=== PATIENT | male | born 1970 | race African-American/Black ===

== ENCOUNTER 2016-08-13 17:53 | Emergency (ER) | payer MEDICAID, OTHER ==
[~2016-08-13] VITALS: Ht 172.7 cm; Wt 113.6 kg
[~2016-08-13 17:53] MED LIST: BENZ1TAB10 PO; BUPR-93 PO; QUET200T PO
[2016-08-13 18:40] LABS: BASOPHILS # (AUTO) 0.04 K/uL (0.00-0.20); BASOPHILS % (AUTO) 0.3 % (0.0-2.0); EOSINOPHILS # (AUTO) 0.65 K/uL (0.00-0.70); EOSINOPHILS % (AUTO) 4.69 % (1.0-6.0); HEMATOCRIT 41.8 % (41-53); HEMOGLOBIN 13.7 g/dL (13.5-17.5); LYMPHOCYTES # (AUTO) 2.3 K/uL (1.0-4.8); LYMPHOCYTES % (AUTO) 16.6 % (22.0-44.0); MEAN CORPUSCULAR HEMOGLOBIN 29.7 pg (26.0-34.0); MEAN CORPUSCULAR HGB CONC 32.6 G/dL (31.0-37.0); MEAN CORPUSCULAR VOLUME 91 fL (80-100); MONOCYTES # (AUTO) 0.9 K/uL (0.1-1.0); MONOCYTES % (AUTO) 6.3 % (2.0-9.0); NEUTROPHILS % (AUTO) 72.2 % (40.0-70.0); PLATELET COUNT (AUTO) 249 K/uL (150-450); RED CELL DISTRIBUTION WIDTH 14.6 % (11.5-14.5); WHITE BLOOD COUNT (AUTO) 13.8 K/uL (4.5-11.0)
[2016-08-13 18:47] LABS: ANION GAP 10 mmol/L (8-16); CALCIUM, TOTAL 8.4 mg/dL (8.8-10.5); CARBON DIOXIDE 28 mmol/L (22-29); CHLORIDE 99 mmol/L (98-107); CREATININE 1.16 mg/dL (0.60-1.30); GLOMERULAR FILTR. RATE CALC > 60 mL/min (>60); SODIUM SERUM 137 mmol/L (136-145); UREA NITROGEN, BLOOD 11 mg/dL (7-18)
[2016-08-13 18:53] LABS: ALANINE AMINOTRANSFERASE 71 U/L (12-78); ALBUMIN 3.8 g/dL (3.4-5.0); ASPARTATE AMINOTRANSFERASE 24 U/L (15-37); BILIRUBIN,TOTAL 0.3 mg/dL (0.1-1.0); TOTAL PROTEIN, SERUM 7.7 g/dL (6.4-8.2)
[2016-08-13 19:06] LABS: RBC MORPHOLOGY COMMENT NORMAL RBC MORPH
[2016-08-13] MEDS ORDERED: RisperiDONE CONC 2 MG/2 ML SOLUTION ORAL.SYG PO ONE (20:15)
[2016-08-13] MEDS ORDERED: BuPROPion HCL 75 MG TABLET PO ONE (20:15)
[2016-08-13] MEDS ORDERED: QUEtiapine FUMARATE 100 MG TABLET PO ONE (20:15)
[2016-08-13 20:22] VITALS: BP 133/82
== END 2016-08-13 20:26 | disposition home or self-care (01) ==
LOC: EMS 17:56
DX: F20.9 Schizophrenia, unspecified (principal); F32.9 Major depressive disorder, single episode, unspecified; J45.909 Unspecified asthma, uncomplicated; I10 Essential (primary) hypertension; F17.210 Nicotine dependence, cigarettes, uncomplicated
CPT/HCPCS: 36415; 80053; 80307; 85025; 99284; 99406; G0480

== ENCOUNTER 2016-08-14 08:27 | Inpatient (IN) | payer MEDICAID, OTHER ==
[~2016-08-14] VITALS: Ht 172.7 cm; Wt 116.5 kg
[2016-08-14 08:53] LABS: BASOPHILS # (AUTO) 0.03 K/uL (0.00-0.20); BASOPHILS % (AUTO) 0.3 % (0.0-2.0); EOSINOPHILS # (AUTO) 0.81 K/uL (0.00-0.70); EOSINOPHILS % (AUTO) 8.71 % (1.0-6.0); HEMATOCRIT 43.9 % (41-53); HEMOGLOBIN 14.3 g/dL (13.5-17.5); LYMPHOCYTES # (AUTO) 2.6 K/uL (1.0-4.8); LYMPHOCYTES % (AUTO) 27.4 % (22.0-44.0); MEAN CORPUSCULAR HEMOGLOBIN 29.4 pg (26.0-34.0); MEAN CORPUSCULAR HGB CONC 32.5 G/dL (31.0-37.0); MEAN CORPUSCULAR VOLUME 90 fL (80-100); MONOCYTES # (AUTO) 0.9 K/uL (0.1-1.0); MONOCYTES % (AUTO) 9.7 % (2.0-9.0); NEUTROPHILS % (AUTO) 53.9 % (40.0-70.0); PLATELET COUNT (AUTO) 235 K/uL (150-450); RED BLOOD CELL COUNT(AUTO) 4.85 MIL/uL (4.50-5.90); RED CELL DISTRIBUTION WIDTH 14.9 % (11.5-14.5); WHITE BLOOD COUNT (AUTO) 9.3 K/uL (4.5-11.0)
[2016-08-14 09:06] LABS: ANION GAP 8 mmol/L (8-16); CALCIUM, TOTAL 9.1 mg/dL (8.8-10.5); CARBON DIOXIDE 31 mmol/L (22-29); CHLORIDE 102 mmol/L (98-107); CREATININE 1.19 mg/dL (0.60-1.30); GLOMERULAR FILTR. RATE CALC > 60 mL/min (>60); POTASSIUM 4.3 mmol/L (3.5-5.1); SODIUM SERUM 141 mmol/L (136-145); UREA NITROGEN, BLOOD 11 mg/dL (7-18)
[2016-08-14 09:13] LABS: ALANINE AMINOTRANSFERASE 75 U/L (12-78); ALBUMIN 4.3 g/dL (3.4-5.0); ASPARTATE AMINOTRANSFERASE 24 U/L (15-37); BILIRUBIN,TOTAL 0.5 mg/dL (0.1-1.0); TOTAL PROTEIN, SERUM 8.4 g/dL (6.4-8.2)
[2016-08-14] MEDS ORDERED: QUEtiapine FUMARATE 100 MG TABLET PO PRN (09:30)
[2016-08-14] MEDS ORDERED: TUBERCULIN, PURIFIED PROTEIN DERIVATIVE 5 TU/0.1 ML SYG ID ONE (10:15)
[2016-08-14] MEDS ORDERED: PROMETHAZINE HCL 25 MG TABLET PO PRN (10:15)
[2016-08-14] MEDS ORDERED: HydrOXYzine PAMOATE 50 MG CAPSULE PO PRN (10:15)
[2016-08-14] MEDS ORDERED: MAGNESIUM HYDROXIDE SUSPENSION 30 ML UDCUP PO PRN (10:15)
[2016-08-14] MEDS ORDERED: GuaiFENesin/D-METHORPHAN [SUGAR-FREE] 200-20MG/10 ML SYRUP UDCUP PO PRN (10:15)
[2016-08-14] MEDS ORDERED: LOPERAMIDE HCL 2 MG CAPSULE PO PRN (10:15)
[2016-08-14] MEDS ORDERED: MAG HYDROX/AL HYDROX/SIMETH ES 30 ML SUSPENSION UDCUP PO PRN (10:15)
[2016-08-14] MEDS: THIAMINE HCL 100 MG TABLET PO SCH (19:30)
[2016-08-14 20:07] VITALS: BP 136/82
[2016-08-14] MEDS ORDERED: QUEtiapine FUMARATE 200 MG TABLET PO SCH (21:00)
[2016-08-14 21:54] VITALS: BP 136/82
[2016-08-15 08:00] VITALS: BP 147/113
[2016-08-15 08:13] LABS: CHOL/HDL RATIO 6.4 (4.2-7.3)
[2016-08-15] MEDS: BuPROPion HCL XL 150 MG ER TABLET PO SCH (10:50)
[2016-08-15] MEDS: MULTIVITAMINS WITH MINERALS, THERAPEUTIC TABLET PO SCH (10:50)
[2016-08-15] MEDS: FOLIC ACID 1 MG TABLET PO SCH (10:50)
[2016-08-15] MEDS: NALTREXONE HCL 50 MG TABLET PO SCH (10:50)
[2016-08-15] MEDS: THIAMINE HCL 100 MG TABLET PO SCH ×2 (10:51→16:13)
[2016-08-15 14:10] VITALS: BP 139/67
[2016-08-15] MEDS: LORazepam 2 MG TABLET PO PRN (14:45)
[2016-08-15] MEDS ORDERED: OLANZapine 5 MG RAPDIS TABLET PO PRN (15:15)
[2016-08-15] MEDS: TRIHEXYPHENIDYL HCL 2 MG TABLET PO SCH (17:27)
[2016-08-15 20:59] VITALS: BP 134/89
[2016-08-15] MEDS ORDERED: OLANZapine 5 MG RAPDIS TABLET PO SCH (21:00)
[2016-08-16 08:04] VITALS: BP 108/66
[2016-08-16] MEDS: TRIHEXYPHENIDYL HCL 2 MG TABLET PO SCH ×3 (10:31→16:11)
[2016-08-16] MEDS: NALTREXONE HCL 50 MG TABLET PO SCH (10:31)
[2016-08-16] MEDS: THIAMINE HCL 100 MG TABLET PO SCH ×2 (10:31→16:11)
[2016-08-16] MEDS: BuPROPion HCL XL 150 MG ER TABLET PO SCH (10:32)
[2016-08-16] MEDS: FOLIC ACID 1 MG TABLET PO SCH (10:32)
[2016-08-16] MEDS: MULTIVITAMINS WITH MINERALS, THERAPEUTIC TABLET PO SCH (10:32)
[2016-08-16] MEDS: ACETAMINOPHEN 325 MG TABLET PO PRN (16:14)
[2016-08-16 16:15] VITALS: BP 120/91
[2016-08-16] MEDS ORDERED: OLANZapine 10 MG RAPDIS TABLET PO SCH (21:00)
[2016-08-16] MEDS: ZOLPIDEM TARTRATE 10 MG TABLET PO PRN (22:39)
[2016-08-17 06:47] VITALS: BP 125/89
[2016-08-17 08:04] VITALS: BP 106/63
[2016-08-17] MEDS: FOLIC ACID 1 MG TABLET PO SCH (09:52)
[2016-08-17] MEDS: BuPROPion HCL XL 150 MG ER TABLET PO SCH (09:52)
[2016-08-17] MEDS: TRIHEXYPHENIDYL HCL 2 MG TABLET PO SCH ×3 (09:52→16:46)
[2016-08-17] MEDS: MULTIVITAMINS WITH MINERALS, THERAPEUTIC TABLET PO SCH (09:53)
[2016-08-17] MEDS: THIAMINE HCL 100 MG TABLET PO SCH ×2 (09:53→16:46)
[2016-08-17] MEDS: NALTREXONE HCL 50 MG TABLET PO SCH (09:53)
[2016-08-17] MEDS: ACETAMINOPHEN 325 MG TABLET PO PRN (12:25)
[2016-08-17] MEDS: LORazepam 2 MG TABLET PO PRN (12:26)
[2016-08-17] MEDS ORDERED: PALIPERIDONE 3 MG ER TABLET PO PRN (13:30)
[2016-08-17] MEDS ORDERED: PALIPERIDONE PALMITATE 234 MG/1.5 ML SYRINGE IM ONE (16:00)
[2016-08-17 18:06] VITALS: BP 120/68
[2016-08-17] MEDS ORDERED: PALIPERIDONE 3 MG ER TABLET PO SCH (21:00)
[2016-08-18 08:57] VITALS: BP 126/78
[2016-08-18 09:25] VITALS: BP 126/78
[2016-08-18] MEDS: THIAMINE HCL 100 MG TABLET PO SCH ×2 (09:28→16:28)
[2016-08-18] MEDS: MULTIVITAMINS WITH MINERALS, THERAPEUTIC TABLET PO SCH (09:28)
[2016-08-18] MEDS: ACETAMINOPHEN 325 MG TABLET PO PRN ×2 (09:28→17:49)
[2016-08-18] MEDS: LORazepam 2 MG TABLET PO PRN (09:28)
[2016-08-18] MEDS: BuPROPion HCL XL 150 MG ER TABLET PO SCH (09:28)
[2016-08-18] MEDS: NALTREXONE HCL 50 MG TABLET PO SCH (09:28)
[2016-08-18] MEDS: FOLIC ACID 1 MG TABLET PO SCH (09:28)
[2016-08-18] MEDS: TRIHEXYPHENIDYL HCL 2 MG TABLET PO SCH ×3 (09:29→16:28)
[2016-08-18] MEDS: NICOTINE 21 MG/24 HOUR PATCH TD SCH (16:30)
[2016-08-18] MEDS ORDERED: PALIPERIDONE 3 MG ER TABLET PO PRN (17:00)
[2016-08-18] MEDS: ZOLPIDEM TARTRATE 10 MG TABLET PO PRN (20:54)
[2016-08-19] MEDS: ACETAMINOPHEN 325 MG TABLET PO PRN ×2 (04:13→12:53)
[2016-08-19 04:18] VITALS: BP 123/72
[2016-08-19] MEDS: LORazepam 2 MG TABLET PO PRN (05:21)
[2016-08-19 08:19] VITALS: BP 140/88
[2016-08-19] MEDS ORDERED: NICOTINE 21 MG/24 HOUR PATCH TD SCH (09:00)
[2016-08-19] MEDS: NALTREXONE HCL 50 MG TABLET PO SCH (09:43)
[2016-08-19] MEDS: BuPROPion HCL XL 150 MG ER TABLET PO SCH (09:43)
[2016-08-19] MEDS: THIAMINE HCL 100 MG TABLET PO SCH ×2 (09:43→16:04)
[2016-08-19] MEDS: TRIHEXYPHENIDYL HCL 2 MG TABLET PO SCH ×3 (09:43→16:04)
[2016-08-19] MEDS: FOLIC ACID 1 MG TABLET PO SCH (09:43)
[2016-08-19] MEDS: MULTIVITAMINS WITH MINERALS, THERAPEUTIC TABLET PO SCH (09:43)
[2016-08-19] MEDS: NICOTINE 21 MG/24 HOUR PATCH TD SCH (09:46)
[2016-08-19 18:47] VITALS: BP 132/91
[2016-08-20 08:00] VITALS: BP 105/66
[2016-08-20] MEDS: MULTIVITAMINS WITH MINERALS, THERAPEUTIC TABLET PO SCH (10:11)
[2016-08-20] MEDS: THIAMINE HCL 100 MG TABLET PO SCH ×2 (10:11→16:44)
[2016-08-20] MEDS: NALTREXONE HCL 50 MG TABLET PO SCH (10:11)
[2016-08-20] MEDS: FOLIC ACID 1 MG TABLET PO SCH (10:11)
[2016-08-20] MEDS: TRIHEXYPHENIDYL HCL 2 MG TABLET PO SCH ×3 (10:11→16:44)
[2016-08-20] MEDS: BuPROPion HCL XL 150 MG ER TABLET PO SCH (10:11)
[2016-08-20] MEDS: NICOTINE 21 MG/24 HOUR PATCH TD SCH (10:15)
[2016-08-20] MEDS: LORazepam 2 MG TABLET PO PRN (13:38)
[2016-08-20] MEDS: ACETAMINOPHEN 325 MG TABLET PO PRN (14:56)
[2016-08-20 19:44] VITALS: BP 132/78
[2016-08-21 09:40] VITALS: BP 122/69
[2016-08-21] MEDS: FOLIC ACID 1 MG TABLET PO SCH (09:41)
[2016-08-21] MEDS: BuPROPion HCL XL 150 MG ER TABLET PO SCH (09:41)
[2016-08-21] MEDS: TRIHEXYPHENIDYL HCL 2 MG TABLET PO SCH ×3 (09:41→16:29)
[2016-08-21] MEDS: THIAMINE HCL 100 MG TABLET PO SCH ×2 (09:41→16:29)
[2016-08-21] MEDS: NALTREXONE HCL 50 MG TABLET PO SCH (09:41)
[2016-08-21] MEDS: MULTIVITAMINS WITH MINERALS, THERAPEUTIC TABLET PO SCH (09:41)
[2016-08-21] MEDS: LORazepam 2 MG TABLET PO PRN ×2 (09:42→16:30)
[2016-08-21] MEDS: ACETAMINOPHEN 325 MG TABLET PO PRN (09:43)
[2016-08-21] MEDS: NICOTINE 21 MG/24 HOUR PATCH TD SCH (09:44)
[2016-08-21 16:00] VITALS: BP 123/66
[2016-08-21] MEDS ORDERED: PALI234D IM (16:42)
[2016-08-21] MEDS ORDERED: TRIH2TAB3 PO (16:42)
[2016-08-21] MEDS ORDERED: BUPR-47 PO (16:42)
[2016-08-21] MEDS ORDERED: NALT50 PO (16:42)
[2016-08-21] MEDS: ZOLPIDEM TARTRATE 10 MG TABLET PO PRN (21:23)
[2016-08-22 08:08] VITALS: BP 113/77
[2016-08-22] MEDS: NALTREXONE HCL 50 MG TABLET PO SCH (09:37)
[2016-08-22] MEDS: BuPROPion HCL XL 150 MG ER TABLET PO SCH (09:37)
[2016-08-22] MEDS: TRIHEXYPHENIDYL HCL 2 MG TABLET PO SCH ×2 (09:37→12:33)
[2016-08-22] MEDS: MULTIVITAMINS WITH MINERALS, THERAPEUTIC TABLET PO SCH (09:37)
[2016-08-22] MEDS: THIAMINE HCL 100 MG TABLET PO SCH (09:37)
[2016-08-22] MEDS: FOLIC ACID 1 MG TABLET PO SCH (09:37)
[2016-08-22] MEDS: ACETAMINOPHEN 325 MG TABLET PO PRN (09:38)
[2016-08-22] MEDS: NICOTINE 21 MG/24 HOUR PATCH TD SCH (09:38)
[2016-08-22] MEDS: LORazepam 2 MG TABLET PO PRN (09:38)
[2016-09-14] MEDS ORDERED: PALIPERIDONE PALMITATE 234 MG/1.5 ML SYRINGE IM SCH (09:00)
== END 2016-08-22 13:00 | disposition home or self-care (01) | DRG 750 ==
LOC: EEVIPCON 08:29 → EMS 08:29 → AHU 10:47 → 3EI 17:58
PROVIDERS: ADMIT Psychiatry & Neurology Psychiatry; ATTEND Psychiatry & Neurology Psychiatry
DX: F25.0 Schizoaffective disorder, bipolar type (principal); G93.41 Metabolic encephalopathy; J44.9 Chronic obstructive pulmonary disease, unspecified; Z91.14 Patient's other noncompliance with medication regimen; F19.20 Other psychoactive substance dependence, uncomplicated; F17.200 Nicotine dependence, unspecified, uncomplicated; E66.9 Obesity, unspecified; K21.9 Gastro-esophageal reflux disease without esophagitis; G47.00 Insomnia, unspecified; K59.00 Constipation, unspecified; Z68.39 Body mass index [BMI] 39.0-39.9, adult
CPT/HCPCS: 99285; G0480

== ENCOUNTER 2016-08-22 17:19 | Emergency (ER) | payer MEDICAID, OTHER ==
[~2016-08-22] VITALS: Ht 172.7 cm; Wt 113.6 kg
[~2016-08-22 17:19] MED LIST changes: -BENZ1TAB10 PO; +BUPR-47 PO; -BUPR-93 PO; +NALT50 PO; +PALI234D IM; -QUET200T PO; +TRIH2TAB3 PO
[2016-08-22 20:34] VITALS: BP 136/92
[2016-08-22] MEDS ORDERED: LORazepam 2 MG/ML VIAL IM ONE (21:00)
[2016-08-22] MEDS ORDERED: HALOPERIDOL LACTATE 5 MG/ML VIAL IM ONE (21:00)
== END 2016-08-22 21:11 | disposition home or self-care (01) ==
LOC: EMS 17:20
DX: F41.9 Anxiety disorder, unspecified (principal); F25.9 Schizoaffective disorder, unspecified; J45.909 Unspecified asthma, uncomplicated; I10 Essential (primary) hypertension; F17.210 Nicotine dependence, cigarettes, uncomplicated
CPT/HCPCS: 96372; 99284; 99406; J1630; J2060

== ENCOUNTER 2017-02-11 13:22 | Emergency (ER) | payer OTHER ==
[~2017-02-11] VITALS: Ht 172.7 cm; Wt 113.6 kg
[~2017-02-11 13:22] MED LIST changes: -NALT50 PO; +NALT50TA6 PO
[2017-02-11 15:20] VITALS: BP 141/85
== END 2017-02-11 15:49 | disposition home or self-care (01) ==
LOC: EMS 13:24
DX: Z76.0 Encounter for issue of repeat prescription (principal); F20.9 Schizophrenia, unspecified; F32.9 Major depressive disorder, single episode, unspecified; I10 Essential (primary) hypertension; J45.909 Unspecified asthma, uncomplicated; F17.210 Nicotine dependence, cigarettes, uncomplicated
CPT/HCPCS: 99283

== ENCOUNTER 2017-02-25 00:48 | Inpatient (IN) | payer MEDICAID, OTHER ==
[~2017-02-25] VITALS: Ht 172.7 cm; Wt 120.7 kg
[~2017-02-25 00:48] MED LIST changes: -TRIH2TAB3 PO
[2017-02-25] MEDS ORDERED: BENZ1TAB10 PO (01:01)
[2017-02-25 01:17] LABS: BASOPHILS # (AUTO) 0.04 K/uL (0.00-0.20); BASOPHILS % (AUTO) 0.3 % (0.0-2.0); EOSINOPHILS # (AUTO) 0.38 K/uL (0.00-0.70); EOSINOPHILS % (AUTO) 3.66 % (1.0-6.0); HEMATOCRIT 42.1 % (41-53); HEMOGLOBIN 14.1 g/dL (13.5-17.5); LYMPHOCYTES # (AUTO) 2.4 K/uL (1.0-4.8); LYMPHOCYTES % (AUTO) 23.1 % (22.0-44.0); MEAN CORPUSCULAR HEMOGLOBIN 30.1 pg (26.0-34.0); MEAN CORPUSCULAR HGB CONC 33.6 G/dL (31.0-37.0); MEAN CORPUSCULAR VOLUME 90 fL (80-100); MONOCYTES # (AUTO) 1.1 K/uL (0.1-1.0); MONOCYTES % (AUTO) 10.4 % (2.0-9.0); NEUTROPHILS # (AUTO) 6.5 K/uL (1.8-7.7); NEUTROPHILS % (AUTO) 62.5 % (40.0-70.0); PLATELET COUNT (AUTO) 230 K/uL (150-450); WHITE BLOOD COUNT (AUTO) 10.3 K/uL (4.5-11.0)
[2017-02-25 01:28] LABS: ANION GAP 11 mmol/L (8-16); CALCIUM, TOTAL 9.1 mg/dL (8.8-10.5); CARBON DIOXIDE 27 mmol/L (22-29); CHLORIDE 103 mmol/L (98-107); CREATININE 1.24 mg/dL (0.60-1.30); GLOMERULAR FILTR. RATE CALC > 60 mL/min (>60); POTASSIUM 3.5 mmol/L (3.5-5.1); SODIUM SERUM 141 mmol/L (136-145); UREA NITROGEN, BLOOD 17 mg/dL (7-18)
[2017-02-25 01:33] LABS: ALANINE AMINOTRANSFERASE 48 U/L (12-78); ASPARTATE AMINOTRANSFERASE 28 U/L (15-37); BILIRUBIN,TOTAL 0.3 mg/dL (0.1-1.0)
[2017-02-25] MEDS ORDERED: HALOPERIDOL 5 MG TABLET PO ONE (02:15)
[2017-02-25] MEDS ORDERED: LORazepam 2 MG TABLET PO ONE (02:15)
[2017-02-25] MEDS ORDERED: DiphenhydrAMINE HCL 50 MG CAPSULE PO ONE (02:15)
[2017-02-25] MEDS ORDERED: HALOPERIDOL 5 MG TABLET PO PRN (03:15)
[2017-02-25 08:54] VITALS: BP 100/77
[2017-02-25] MEDS: NICOTINE 21 MG/24 HOUR PATCH TD SCH (10:00)
[2017-02-25] MEDS ORDERED: -PHARMACY VACCINE NOTE- MISC ONE ×2 (10:45)
[2017-02-25] MEDS ORDERED: INFLUENZA VIRUS VACCINE QVS 2017-18 (3YR+)/PF 60 MCG/0.5 ML SYRINGE IM ONE (10:45)
[2017-02-25] MEDS ORDERED: CloNIDine HCL 0.1 MG TABLET PO PRN (13:00)
[2017-02-25] MEDS ORDERED: BACITRACIN 28.4 GM OINTMENT TP PRN (13:00)
[2017-02-25] MEDS ORDERED: ACETAMINOPHEN 325 MG TABLET PO PRN (13:00)
[2017-02-25] MEDS ORDERED: ONDANSETRON HCL 4 MG TABLET PO PRN (13:00)
[2017-02-25] MEDS ORDERED: MAG HYDROX/AL HYDROX/SIMETH ES 30 ML SUSPENSION UDCUP PO PRN (13:00)
[2017-02-25] MEDS ORDERED: ALBUTEROL SULFATE HFA 90 MCG/PUFF 8 GM INHALER IH PRN (13:00)
[2017-02-25] MEDS ORDERED: PETROLATUM,WHITE 71 GM JELLY TP PRN (13:00)
[2017-02-25] MEDS ORDERED: LOPERAMIDE HCL 2 MG CAPSULE PO PRN (13:00)
[2017-02-25] MEDS ORDERED: MAGNESIUM HYDROXIDE SUSPENSION 30 ML UDCUP PO PRN (13:00)
[2017-02-25] MEDS ORDERED: BENZOCAINE/MENTHOL LOZENGE [8 LOZENGES/PACKET] MM PRN (15:00)
[2017-02-25 20:54] VITALS: BP 107/71
[2017-02-25] MEDS: PALIPERIDONE 3 MG ER TABLET PO SCH (21:41)
[2017-02-25] MEDS: BENZTROPINE MESYLATE 1 MG TABLET PO SCH (21:41)
[2017-02-25] MEDS: LORazepam 2 MG TABLET PO PRN (21:42)
[2017-02-25] MEDS: SIMVASTATIN 10 MG TABLET PO SCH (21:42)
[2017-02-25] MEDS: ZOLPIDEM TARTRATE 10 MG TABLET PO PRN (21:42)
[2017-02-26 06:04] LABS: CHOL/HDL RATIO 4.9 (4.2-7.3)
[2017-02-26 08:20] VITALS: BP 105/69
[2017-02-26] MEDS: PALIPERIDONE 3 MG ER TABLET PO SCH ×2 (14:50→22:35)
[2017-02-26] MEDS: NICOTINE 21 MG/24 HOUR PATCH TD SCH (14:50)
[2017-02-26] MEDS: BENZTROPINE MESYLATE 1 MG TABLET PO SCH ×2 (14:50→22:35)
[2017-02-26 20:50] VITALS: BP 135/85
[2017-02-26] MEDS: SIMVASTATIN 10 MG TABLET PO SCH (22:36)
[2017-02-27 08:58] VITALS: BP 127/60
[2017-02-27] MEDS: PALIPERIDONE 3 MG ER TABLET PO SCH ×2 (10:19→20:47)
[2017-02-27] MEDS: BENZTROPINE MESYLATE 1 MG TABLET PO SCH ×2 (10:19→20:47)
[2017-02-27] MEDS: NICOTINE 21 MG/24 HOUR PATCH TD SCH (10:20)
[2017-02-27 16:17] VITALS: BP 116/81
[2017-02-27] MEDS: SIMVASTATIN 10 MG TABLET PO SCH (20:47)
[2017-02-28 08:43] VITALS: BP 108/68
[2017-02-28] MEDS: BENZTROPINE MESYLATE 1 MG TABLET PO SCH ×2 (09:40→20:09)
[2017-02-28] MEDS: PALIPERIDONE 3 MG ER TABLET PO SCH ×2 (09:40→20:09)
[2017-02-28] MEDS: NICOTINE 21 MG/24 HOUR PATCH TD SCH (09:41)
[2017-02-28] MEDS: VENLAFAXINE HCL 75 MG ER CAPSULE PO SCH (12:03)
[2017-02-28] MEDS: LORazepam 2 MG TABLET PO PRN (12:17)
[2017-02-28] MEDS ORDERED: PALIPERIDONE PALMITATE 234 MG/1.5 ML SYRINGE IM SCH (15:30)
[2017-02-28 19:02] VITALS: BP 105/78
[2017-02-28] MEDS: SIMVASTATIN 10 MG TABLET PO SCH (20:09)
[2017-03-01 08:30] VITALS: BP 111/63
[2017-03-01] MEDS: VENLAFAXINE HCL 75 MG ER CAPSULE PO SCH (08:53)
[2017-03-01] MEDS: PALIPERIDONE 3 MG ER TABLET PO SCH (08:53)
[2017-03-01] MEDS: BENZTROPINE MESYLATE 1 MG TABLET PO SCH ×2 (08:53→20:11)
[2017-03-01] MEDS: NICOTINE 21 MG/24 HOUR PATCH TD SCH (08:53)
[2017-03-01] MEDS: LORazepam 2 MG TABLET PO PRN (08:55)
[2017-03-01 18:32] VITALS: BP 119/81
[2017-03-01] MEDS: SIMVASTATIN 10 MG TABLET PO SCH (20:11)
[2017-03-01] MEDS: ZOLPIDEM TARTRATE 10 MG TABLET PO PRN (20:12)
[2017-03-02 09:56] VITALS: BP 95/55
[2017-03-02] MEDS: NICOTINE 21 MG/24 HOUR PATCH TD SCH (12:25)
[2017-03-02] MEDS: BENZTROPINE MESYLATE 1 MG TABLET PO SCH ×2 (12:25→20:39)
[2017-03-02] MEDS: VENLAFAXINE HCL 75 MG ER CAPSULE PO SCH (12:25)
[2017-03-02] MEDS: IBUPROFEN 600 MG TABLET PO PRN ×2 (14:32→20:33)
[2017-03-02] MEDS: LORazepam 2 MG TABLET PO PRN (14:32)
[2017-03-02 17:17] VITALS: BP 101/62
[2017-03-02 20:30] VITALS: BP 124/71
[2017-03-02] MEDS: SIMVASTATIN 10 MG TABLET PO SCH (20:31)
[2017-03-02] MEDS: ZOLPIDEM TARTRATE 10 MG TABLET PO PRN (20:34)
[2017-03-02 21:30] VITALS: BP 112/68
[2017-03-03 08:38] VITALS: BP 102/68
[2017-03-03] MEDS: NICOTINE 21 MG/24 HOUR PATCH TD SCH (08:45)
[2017-03-03] MEDS: VENLAFAXINE HCL 75 MG ER CAPSULE PO SCH (08:45)
[2017-03-03] MEDS: BENZTROPINE MESYLATE 1 MG TABLET PO SCH ×2 (08:45→21:56)
[2017-03-03] MEDS: LORazepam 2 MG TABLET PO PRN (08:46)
[2017-03-03 19:15] VITALS: BP 107/62
[2017-03-03] MEDS: SIMVASTATIN 10 MG TABLET PO SCH (21:56)
[2017-03-04] MEDS: ZOLPIDEM TARTRATE 10 MG TABLET PO PRN (00:02)
[2017-03-04 00:06] VITALS: BP 106/74
[2017-03-04 08:19] VITALS: BP 104/59
[2017-03-04] MEDS: NICOTINE 21 MG/24 HOUR PATCH TD SCH (09:00)
[2017-03-04] MEDS: BENZTROPINE MESYLATE 1 MG TABLET PO SCH ×2 (10:31→21:15)
[2017-03-04] MEDS: VENLAFAXINE HCL 75 MG ER CAPSULE PO SCH (10:31)
[2017-03-04 16:36] VITALS: BP 125/69
[2017-03-04] MEDS: SIMVASTATIN 10 MG TABLET PO SCH (21:16)
[2017-03-05 00:30] VITALS: BP 127/77
[2017-03-05] MEDS: BENZTROPINE MESYLATE 1 MG TABLET PO SCH (09:44)
[2017-03-05] MEDS: VENLAFAXINE HCL 75 MG ER CAPSULE PO SCH (09:44)
[2017-03-05] MEDS: NICOTINE 21 MG/24 HOUR PATCH TD SCH (09:45)
[2017-03-05] MEDS ORDERED: VENL-67 PO (14:27)
[2017-03-05] MEDS ORDERED: SIMV-259 PO (14:27)
[2017-03-05 15:08] VITALS: BP 128/87
== END 2017-03-05 14:45 | disposition home or self-care (01) | DRG 750 ==
LOC: EMS 00:49 → AHU 08:22 → 3EI 02-26 20:17
DX: F25.1 Schizoaffective disorder, depressive type (principal); R45.851 Suicidal ideations; Z68.41 Body mass index [BMI] 40.0-44.9, adult; I10 Essential (primary) hypertension; R45.850 Homicidal ideations; J44.9 Chronic obstructive pulmonary disease, unspecified; F17.210 Nicotine dependence, cigarettes, uncomplicated; F14.90 Cocaine use, unspecified, uncomplicated; F15.10 Other stimulant abuse, uncomplicated; E66.9 Obesity, unspecified; K59.00 Constipation, unspecified; G47.00 Insomnia, unspecified; F10.10 Alcohol abuse, uncomplicated; E78.5 Hyperlipidemia, unspecified; Z71.6 Tobacco abuse counseling; Z91.5 Personal history of self-harm; Z91.14 Patient's other noncompliance with medication regimen; Z79.899 Other long term (current) drug therapy
CPT/HCPCS: 99285; 99406; G0480; Q0162

== ENCOUNTER 2018-02-04 15:36 | Inpatient (IN) | payer MEDICAID ==
[~2018-02-04 15:36] MED LIST changes: +BENZ1TAB10 PO; -BUPR-47 PO; -NALT50TA6 PO; -PALI234D IM; +SIMV-259 PO; +VENL-67 PO
[2018-02-04] MEDS ORDERED: PALIPERIDONE 1.5 MG ER TABLET PO PRN (16:15)
[2018-02-04] MEDS ORDERED: LOPERAMIDE HCL 2 MG CAPSULE PO PRN ×2 (16:15→20:00)
[2018-02-04] MEDS ORDERED: MAG HYDROX/AL HYDROX/SIMETH ES 30 ML SUSPENSION UDCUP PO PRN ×2 (16:15→20:00)
[2018-02-04] MEDS ORDERED: PROMETHAZINE HCL 25 MG TABLET PO PRN ×2 (16:15)
[2018-02-04] MEDS ORDERED: GuaiFENesin/D-METHORPHAN [SUGAR-FREE] 200-20MG/10 ML SYRUP UDCUP PO PRN (16:15)
[2018-02-04] MEDS ORDERED: TUBERCULIN, PURIFIED PROTEIN DERIVATIVE 5 TU/0.1 ML SYG ID ONE (16:15)
[2018-02-04] MEDS ORDERED: PALIPERIDONE PALMITATE 234 MG/1.5 ML SYRINGE IM ONE (16:15)
[2018-02-04] MEDS ORDERED: ACETAMINOPHEN 325 MG TABLET PO PRN ×2 (16:15→20:00)
[2018-02-04] MEDS ORDERED: MAGNESIUM HYDROXIDE SUSPENSION 30 ML UDCUP PO PRN ×2 (16:15→20:00)
[2018-02-04] MEDS: LORazepam 2 MG TABLET PO PRN (17:36)
[2018-02-04] MEDS: THIAMINE HCL 100 MG TABLET PO SCH (17:37)
[2018-02-04 18:08] VITALS: BP 153/85
[2018-02-04 18:33] VITALS: BP 130/82
[2018-02-04] MEDS ORDERED: BENZOCAINE/MENTHOL LOZENGE MM PRN (20:00)
[2018-02-04] MEDS ORDERED: ALBUTEROL SULFATE HFA 90 MCG/PUFF 8 GM INHALER IH PRN (20:00)
[2018-02-04] MEDS ORDERED: ONDANSETRON HCL 4 MG TABLET PO PRN (20:00)
[2018-02-04] MEDS ORDERED: BACITRACIN 28.4 GM OINTMENT TP PRN (20:00)
[2018-02-04] MEDS ORDERED: PETROLATUM,WHITE 71 GM JELLY TP PRN (20:00)
[2018-02-04] MEDS ORDERED: CloNIDine HCL 0.1 MG TABLET PO PRN (20:00)
[2018-02-04] MEDS ORDERED: IBUPROFEN 600 MG TABLET PO PRN (20:00)
[2018-02-04] MEDS: DIVALPROEX SODIUM 500 MG ER TABLET PO SCH (20:20)
[2018-02-04] MEDS: PALIPERIDONE 3 MG ER TABLET PO SCH (20:20)
[2018-02-05 08:12] VITALS: BP 119/73
[2018-02-05 08:37] LABS: BASOPHILS % (AUTO) 0.5 % (0.0-2.0); EOSINOPHILS % (AUTO) 6.4 % (1.0-6.0); HEMATOCRIT 40.7 % (41-53); HEMOGLOBIN 13.8 g/dL (13.5-17.5); LYMPHOCYTES # (AUTO) 2.4 K/uL (1.0-4.8); LYMPHOCYTES % (AUTO) 30.2 % (22.0-44.0); MEAN CORPUSCULAR HGB CONC 33.9 G/dL (31.0-37.0); MEAN CORPUSCULAR VOLUME 88 fL (80-100); MONOCYTES # (AUTO) 0.9 K/uL (0.1-1.0); NEUTROPHILS # (AUTO) 4.1 K/uL (1.8-7.7); NEUTROPHILS % (AUTO) 51.9 % (40.0-70.0); PLATELET COUNT (AUTO) 219 K/uL (150-450); RED CELL DISTRIBUTION WIDTH 14.3 % (11.5-14.5)
[2018-02-05] MEDS: NALTREXONE HCL 50 MG TABLET PO SCH (08:57)
[2018-02-05] MEDS: MULTIVITAMINS WITH MINERALS, THERAPEUTIC TABLET PO SCH (08:57)
[2018-02-05] MEDS: THIAMINE HCL 100 MG TABLET PO SCH ×2 (08:58→16:02)
[2018-02-05] MEDS: FOLIC ACID 1 MG TABLET PO SCH (08:58)
[2018-02-05] MEDS ORDERED: DOCUSATE SODIUM 100 MG CAPSULE PO SCH (09:00)
[2018-02-05] MEDS ORDERED: OMEPRAZOLE 20 MG CAPSULE PO SCH (09:00)
[2018-02-05 09:02] LABS: HEMOGLOBIN A1C 5.7 % (4.5-6.2)
[2018-02-05 09:12] LABS: ALANINE AMINOTRANSFERASE 65 U/L (12-78); ALBUMIN 3.5 g/dL (3.4-5.0); ALKALINE PHOSPHATASE 57 U/L (46-116); ANION GAP 5 mmol/L (8-16); ASPARTATE AMINOTRANSFERASE 32 U/L (15-37); BILIRUBIN,TOTAL 0.4 mg/dL (0.1-1.0); CALCIUM, TOTAL 8.7 mg/dL (8.8-10.5); CARBON DIOXIDE 28 mmol/L (22-29); CHLORIDE 103 mmol/L (98-107); CHOL/HDL RATIO 5.2 (4.2-7.3); CHOLESTEROL 161 mg/dL (131-200); CREATININE 0.99 mg/dL (0.60-1.30); FREE T4 (FREE THYROXINE) 0.97 ng/dL (0.76-1.46); GLOMERULAR FILTR. RATE CALC > 60 mL/min (>60); GLUCOSE,RANDOM 89 mg/dL (70-110); HDL CHOLESTEROL 31 mg/dL (40-60); LDL CHOL (CALC.) 117 mg/dL (0-130); POTASSIUM 4.1 mmol/L (3.5-5.1); SODIUM SERUM 136 mmol/L (136-145); THYROID STIMULATING HORMONE 1.45 uIU/mL (0.36-3.74); TOTAL PROTEIN, SERUM 7.4 g/dL (6.4-8.2); TRIGLYCERIDES 66 mg/dL (15-150); UREA NITROGEN, BLOOD 9 mg/dL (7-18)
[2018-02-05] MEDS: BENZTROPINE MESYLATE 2 MG TABLET PO SCH (16:02)
[2018-02-05 16:18] VITALS: BP 128/88
[2018-02-05] MEDS ORDERED: ACETAMINOPHEN 325 MG TABLET PO PRN (18:00)
[2018-02-05] MEDS ORDERED: ALBUTEROL SULFATE HFA 90 MCG/PUFF 8 GM INHALER IH PRN (18:00)
[2018-02-05] MEDS ORDERED: MAGNESIUM HYDROXIDE SUSPENSION 30 ML UDCUP PO PRN (18:00)
[2018-02-05] MEDS ORDERED: BENZOCAINE/MENTHOL LOZENGE MM PRN (18:00)
[2018-02-05] MEDS ORDERED: CloNIDine HCL 0.1 MG TABLET PO PRN (18:00)
[2018-02-05] MEDS ORDERED: LOPERAMIDE HCL 2 MG CAPSULE PO PRN (18:00)
[2018-02-05] MEDS ORDERED: MAG HYDROX/AL HYDROX/SIMETH ES 30 ML SUSPENSION UDCUP PO PRN (18:00)
[2018-02-05] MEDS ORDERED: PETROLATUM,WHITE 71 GM JELLY TP PRN (18:00)
[2018-02-05] MEDS ORDERED: BACITRACIN 28.4 GM OINTMENT TP PRN (18:00)
[2018-02-05] MEDS ORDERED: ONDANSETRON HCL 4 MG TABLET PO PRN (18:00)
[2018-02-05] MEDS ORDERED: IBUPROFEN 600 MG TABLET PO PRN (18:00)
[2018-02-05] MEDS: DIVALPROEX SODIUM 500 MG ER TABLET PO SCH (20:52)
[2018-02-05] MEDS: PALIPERIDONE 3 MG ER TABLET PO SCH (20:52)
[2018-02-05] MEDS: SIMVASTATIN 10 MG TABLET PO SCH (20:56)
[2018-02-06 00:24] VITALS: BP 127/75
[2018-02-06 08:35] VITALS: BP 138/93
[2018-02-06] MEDS: BENZTROPINE MESYLATE 2 MG TABLET PO SCH ×3 (08:51→16:20)
[2018-02-06] MEDS: FOLIC ACID 1 MG TABLET PO SCH (08:51)
[2018-02-06] MEDS: DOCUSATE SODIUM 100 MG CAPSULE PO SCH (08:51)
[2018-02-06] MEDS: THIAMINE HCL 100 MG TABLET PO SCH ×2 (08:51→16:20)
[2018-02-06] MEDS: NALTREXONE HCL 50 MG TABLET PO SCH (08:51)
[2018-02-06] MEDS: OMEPRAZOLE 20 MG CAPSULE PO SCH (08:51)
[2018-02-06] MEDS: MULTIVITAMINS WITH MINERALS, THERAPEUTIC TABLET PO SCH (08:52)
[2018-02-06] MEDS ORDERED: FLUoxetine HCL 20 MG CAPSULE PO SCH (09:00)
[2018-02-06] MEDS ORDERED: BuPROPion HCL XL 150 MG ER TABLET PO SCH (09:00)
[2018-02-06] MEDS: LORazepam 2 MG TABLET PO PRN (10:56)
[2018-02-06] MEDS: NICOTINE 21 MG/24 HOUR PATCH TD SCH (11:22)
[2018-02-06 16:00] VITALS: BP 109/87
[2018-02-06] MEDS: DIVALPROEX SODIUM 500 MG ER TABLET PO SCH (17:29)
[2018-02-06] MEDS: SIMVASTATIN 10 MG TABLET PO SCH (20:25)
[2018-02-06] MEDS: PALIPERIDONE 3 MG ER TABLET PO SCH (20:25)
[2018-02-07 07:12] VITALS: BP 114/82
[2018-02-07 08:53] VITALS: BP 100/63
[2018-02-07] MEDS: DOCUSATE SODIUM 100 MG CAPSULE PO SCH (09:23)
[2018-02-07] MEDS: NICOTINE 21 MG/24 HOUR PATCH TD SCH (09:23)
[2018-02-07] MEDS: BENZTROPINE MESYLATE 2 MG TABLET PO SCH ×3 (09:23→16:04)
[2018-02-07] MEDS: FOLIC ACID 1 MG TABLET PO SCH (09:23)
[2018-02-07] MEDS: MULTIVITAMINS WITH MINERALS, THERAPEUTIC TABLET PO SCH (09:24)
[2018-02-07] MEDS: BuPROPion HCL 100 MG SR TABLET PO SCH ×2 (09:24→16:04)
[2018-02-07] MEDS: THIAMINE HCL 100 MG TABLET PO SCH ×2 (09:24→16:05)
[2018-02-07] MEDS: NALTREXONE HCL 50 MG TABLET PO SCH (09:24)
[2018-02-07] MEDS: OMEPRAZOLE 20 MG CAPSULE PO SCH (09:24)
[2018-02-07] MEDS: DIVALPROEX SODIUM 500 MG ER TABLET PO SCH ×3 (09:26→16:05)
[2018-02-07 17:00] VITALS: BP 115/79
[2018-02-07] MEDS: LORazepam 2 MG TABLET PO PRN (17:07)
[2018-02-07] MEDS: PALIPERIDONE 3 MG ER TABLET PO SCH (20:21)
[2018-02-07] MEDS: SIMVASTATIN 10 MG TABLET PO SCH (20:21)
[2018-02-07] MEDS ORDERED: DIVALPROEX SODIUM 250 MG ER TABLET PO SCH (21:00)
[2018-02-07] MEDS: ZOLPIDEM TARTRATE 10 MG TABLET PO PRN (21:37)
[2018-02-08 06:16] VITALS: BP 108/78
[2018-02-08 08:00] VITALS: BP 134/90
[2018-02-08] MEDS: THIAMINE HCL 100 MG TABLET PO SCH ×2 (08:58→16:47)
[2018-02-08] MEDS: OMEPRAZOLE 20 MG CAPSULE PO SCH (08:58)
[2018-02-08] MEDS: NALTREXONE HCL 50 MG TABLET PO SCH (08:58)
[2018-02-08] MEDS: DOCUSATE SODIUM 100 MG CAPSULE PO SCH (08:59)
[2018-02-08] MEDS: BENZTROPINE MESYLATE 2 MG TABLET PO SCH ×3 (08:59→16:47)
[2018-02-08] MEDS: BuPROPion HCL 100 MG SR TABLET PO SCH ×2 (08:59→16:47)
[2018-02-08] MEDS: NICOTINE 21 MG/24 HOUR PATCH TD SCH (08:59)
[2018-02-08] MEDS: MULTIVITAMINS WITH MINERALS, THERAPEUTIC TABLET PO SCH (08:59)
[2018-02-08] MEDS: FOLIC ACID 1 MG TABLET PO SCH (08:59)
[2018-02-08] MEDS: DIVALPROEX SODIUM 500 MG ER TABLET PO SCH ×2 (08:59→13:27)
[2018-02-08] MEDS ORDERED: PALIPERIDONE PALMITATE 156 MG/ML SYRINGE IM ONE (09:00)
[2018-02-08 16:00] VITALS: BP 146/82
[2018-02-08] MEDS: SIMVASTATIN 10 MG TABLET PO SCH (20:07)
[2018-02-08] MEDS: DIVALPROEX SODIUM 250 MG ER TABLET PO SCH (20:08)
[2018-02-08] MEDS: PALIPERIDONE 3 MG ER TABLET PO SCH (20:08)
[2018-02-09 06:08] VITALS: BP 138/86
[2018-02-09 08:32] VITALS: BP 110/62
[2018-02-09] MEDS: DOCUSATE SODIUM 100 MG CAPSULE PO SCH (09:06)
[2018-02-09] MEDS: OMEPRAZOLE 20 MG CAPSULE PO SCH (09:06)
[2018-02-09] MEDS: BENZTROPINE MESYLATE 2 MG TABLET PO SCH ×3 (09:06→17:23)
[2018-02-09] MEDS: THIAMINE HCL 100 MG TABLET PO SCH ×2 (09:06→17:23)
[2018-02-09] MEDS: BuPROPion HCL 100 MG SR TABLET PO SCH ×2 (09:06→17:23)
[2018-02-09] MEDS: NALTREXONE HCL 50 MG TABLET PO SCH (09:06)
[2018-02-09] MEDS: FOLIC ACID 1 MG TABLET PO SCH (09:07)
[2018-02-09] MEDS: NICOTINE 21 MG/24 HOUR PATCH TD SCH (09:07)
[2018-02-09] MEDS: MULTIVITAMINS WITH MINERALS, THERAPEUTIC TABLET PO SCH (09:07)
[2018-02-09 16:11] VITALS: BP 128/76
[2018-02-09] MEDS: SIMVASTATIN 10 MG TABLET PO SCH (20:57)
[2018-02-09] MEDS: DIVALPROEX SODIUM 250 MG ER TABLET PO SCH (20:58)
[2018-02-09] MEDS: PALIPERIDONE 3 MG ER TABLET PO SCH (20:58)
[2018-02-10 06:06] VITALS: BP 127/83
[2018-02-10] MEDS: FOLIC ACID 1 MG TABLET PO SCH (09:13)
[2018-02-10] MEDS: OMEPRAZOLE 20 MG CAPSULE PO SCH (09:13)
[2018-02-10] MEDS: DOCUSATE SODIUM 100 MG CAPSULE PO SCH (09:13)
[2018-02-10] MEDS: MULTIVITAMINS WITH MINERALS, THERAPEUTIC TABLET PO SCH (09:13)
[2018-02-10] MEDS: BENZTROPINE MESYLATE 2 MG TABLET PO SCH ×3 (09:13→17:01)
[2018-02-10] MEDS: NALTREXONE HCL 50 MG TABLET PO SCH (09:13)
[2018-02-10] MEDS: BuPROPion HCL 100 MG SR TABLET PO SCH ×2 (09:13→17:01)
[2018-02-10] MEDS: THIAMINE HCL 100 MG TABLET PO SCH ×2 (09:13→17:01)
[2018-02-10] MEDS: NICOTINE 21 MG/24 HOUR PATCH TD SCH (09:14)
[2018-02-10 09:30] VITALS: BP 100/60
[2018-02-10 16:47] VITALS: BP 114/89
[2018-02-10] MEDS: SIMVASTATIN 10 MG TABLET PO SCH (20:37)
[2018-02-10] MEDS: PALIPERIDONE 3 MG ER TABLET PO SCH (20:37)
[2018-02-10] MEDS: DIVALPROEX SODIUM 250 MG ER TABLET PO SCH (20:37)
[2018-02-10] MEDS: ZOLPIDEM TARTRATE 10 MG TABLET PO PRN (22:14)
[2018-02-11] MEDS ORDERED: NALT50TA6 PO (05:27)
[2018-02-11] MEDS ORDERED: BUPR100SR PO ×2 (05:27→08:27)
[2018-02-11] MEDS ORDERED: DIVA500T52 PO (05:27)
[2018-02-11] MEDS ORDERED: PALI3 PO (05:27)
[2018-02-11] MEDS ORDERED: BENZ2TAB10 PO (05:27)
[2018-02-11] MEDS ORDERED: MULT-1239 PO (05:36)
[2018-02-11] MEDS ORDERED: OMEP20 PO (05:36)
[2018-02-11] MEDS ORDERED: THIA100T67 PO (05:36)
[2018-02-11] MEDS ORDERED: NICO-704 TD (05:36)
[2018-02-11] MEDS ORDERED: FOLI1 PO (05:36)
[2018-02-11] MEDS ORDERED: SIMV-259 PO (05:36)
[2018-02-11] MEDS ORDERED: DSS100 PO (05:36)
[2018-02-11 06:01] VITALS: BP 118/84
[2018-02-11 08:31] VITALS: BP 119/79
[2018-02-11] MEDS: BENZTROPINE MESYLATE 2 MG TABLET PO SCH (09:00)
[2018-02-11] MEDS: THIAMINE HCL 100 MG TABLET PO SCH (09:00)
[2018-02-11] MEDS: DOCUSATE SODIUM 100 MG CAPSULE PO SCH (09:00)
[2018-02-11] MEDS: FOLIC ACID 1 MG TABLET PO SCH (09:00)
[2018-02-11] MEDS: MULTIVITAMINS WITH MINERALS, THERAPEUTIC TABLET PO SCH (09:00)
[2018-02-11] MEDS: BuPROPion HCL 100 MG SR TABLET PO SCH (09:00)
[2018-02-11] MEDS: OMEPRAZOLE 20 MG CAPSULE PO SCH (09:00)
[2018-02-11] MEDS: NALTREXONE HCL 50 MG TABLET PO SCH (09:00)
== END 2018-02-11 09:45 | disposition home or self-care (01) | DRG 750 ==
LOC: B2S 16:29
PROVIDERS: ADMIT Psychiatry & Neurology Psychiatry; ATTEND Psychiatry & Neurology Psychiatry
DX: F25.0 Schizoaffective disorder, bipolar type (principal); R45.851 Suicidal ideations; Z59.0 Homelessness; E66.9 Obesity, unspecified; F12.90 Cannabis use, unspecified, uncomplicated; F15.10 Other stimulant abuse, uncomplicated; F17.210 Nicotine dependence, cigarettes, uncomplicated; R10.13 Epigastric pain; J44.9 Chronic obstructive pulmonary disease, unspecified; H54.62 Unqualified visual loss, left eye, normal vision right eye; K59.00 Constipation, unspecified; G47.00 Insomnia, unspecified; E78.5 Hyperlipidemia, unspecified; F14.10 Cocaine abuse, uncomplicated; F10.10 Alcohol abuse, uncomplicated; F42.9 Obsessive-compulsive disorder, unspecified; Z91.19 Patient's noncompliance with other medical treatment and regimen; Z28.21 Immunization not carried out because of patient refusal
CPT/HCPCS: 83036; 84439; 84443; 86592

== ENCOUNTER 2018-11-06 15:45 | Inpatient (IN) | payer MEDICAID, OTHER ==
[~2018-11-06] VITALS: Ht 172.7 cm; Wt 130.0 kg
[~2018-11-06 15:45] MED LIST changes: -BENZ1TAB10 PO; +BENZ2TAB10 PO; +BUPR100SR PO; +DIVA500T52 PO; +FOLI1 PO; +NALT50TA6 PO; +NICO-704 TD; +OMEP20 PO; +PALI3 PO; +THIA100T67 PO; -VENL-67 PO
[2018-11-06 18:19] LABS: BASOPHILS % (AUTO) 0.6 % (0.0-2.0); EOSINOPHILS % (AUTO) 5.4 % (1.0-6.0); HEMATOCRIT 39.9 % (41-53); LYMPHOCYTES # (AUTO) 2.8 K/uL (1.0-4.8); LYMPHOCYTES % (AUTO) 33.5 % (22.0-44.0); MEAN CORPUSCULAR HEMOGLOBIN 29.4 pg (26.0-34.0); MEAN CORPUSCULAR HGB CONC 32.7 G/dL (31.0-37.0); MEAN CORPUSCULAR VOLUME 90 fL (80-100); MONOCYTES # (AUTO) 0.7 K/uL (0.1-1.0); MONOCYTES % (AUTO) 8.9 % (2.0-9.0); NEUTROPHILS # (AUTO) 4.3 K/uL (1.8-7.7); NEUTROPHILS % (AUTO) 51.6 % (40.0-70.0); PLATELET COUNT (AUTO) 220 K/uL (150-450); RED BLOOD CELL COUNT(AUTO) 4.43 MIL/uL (4.50-5.90); RED CELL DISTRIBUTION WIDTH 14.7 % (11.5-14.5)
[2018-11-06 18:25] LABS: ANION GAP 7 mmol/L (8-16); CALCIUM, TOTAL 9.2 mg/dL (8.8-10.5); CARBON DIOXIDE 27 mmol/L (22-29); CHLORIDE 105 mmol/L (98-107); CREATININE 1.18 mg/dL (0.60-1.30); GLOMERULAR FILTR. RATE CALC > 60 mL/min (>60); GLUCOSE,RANDOM 103 mg/dL (70-110); POTASSIUM 3.8 mmol/L (3.5-5.1); SODIUM SERUM 139 mmol/L (136-145); UREA NITROGEN, BLOOD 12 mg/dL (7-18)
[2018-11-06 18:34] LABS: ALANINE AMINOTRANSFERASE 34 U/L (12-78); ALBUMIN 3.6 g/dL (3.4-5.0); ALKALINE PHOSPHATASE 45 U/L (46-116); ASPARTATE AMINOTRANSFERASE 20 U/L (15-37); BILIRUBIN,TOTAL 0.2 mg/dL (0.1-1.0); TOTAL PROTEIN, SERUM 7.2 g/dL (6.4-8.2); VALPROIC ACID 4 mcg/mL (50-100)
[2018-11-06] MEDS ORDERED: ACETAMINOPHEN 325 MG TABLET PO PRN (18:45)
[2018-11-06] MEDS ORDERED: LORazepam 2 MG TABLET PO PRN (18:45)
[2018-11-06] MEDS ORDERED: IBUPROFEN 400 MG TABLET PO PRN (18:45)
[2018-11-06 21:45] VITALS: BP 133/101
[2018-11-07 06:21] LABS: BASOPHILS % (AUTO) 0.4 % (0.0-2.0); EOSINOPHILS % (AUTO) 6.6 % (1.0-6.0); HEMATOCRIT 40.1 % (41-53); HEMOGLOBIN 13.3 g/dL (13.5-17.5); LYMPHOCYTES # (AUTO) 2.6 K/uL (1.0-4.8); LYMPHOCYTES % (AUTO) 34.9 % (22.0-44.0); MEAN CORPUSCULAR HEMOGLOBIN 29.7 pg (26.0-34.0); MEAN CORPUSCULAR HGB CONC 33.1 G/dL (31.0-37.0); MEAN CORPUSCULAR VOLUME 90 fL (80-100); MONOCYTES # (AUTO) 0.8 K/uL (0.1-1.0); MONOCYTES % (AUTO) 10.5 % (2.0-9.0); NEUTROPHILS # (AUTO) 3.6 K/uL (1.8-7.7); NEUTROPHILS % (AUTO) 47.6 % (40.0-70.0); PLATELET COUNT (AUTO) 215 K/uL (150-450); RED BLOOD CELL COUNT(AUTO) 4.48 MIL/uL (4.50-5.90); RED CELL DISTRIBUTION WIDTH 14.7 % (11.5-14.5)
[2018-11-07 06:38] LABS: HEMOGLOBIN A1C 5.7 % (4.5-6.2)
[2018-11-07 07:11] LABS: ALANINE AMINOTRANSFERASE 36 U/L (12-78); ALBUMIN 3.6 g/dL (3.4-5.0); ALKALINE PHOSPHATASE 43 U/L (46-116); ANION GAP 5 mmol/L (8-16); ASPARTATE AMINOTRANSFERASE 22 U/L (15-37); BILIRUBIN,TOTAL 0.4 mg/dL (0.1-1.0); CALCIUM, TOTAL 9.7 mg/dL (8.8-10.5); CARBON DIOXIDE 29 mmol/L (22-29); CHLORIDE 106 mmol/L (98-107); CHOL/HDL RATIO 6.7 (4.2-7.3); CHOLESTEROL 193 mg/dL (131-200); CREATININE 1.14 mg/dL (0.60-1.30); GLOMERULAR FILTR. RATE CALC > 60 mL/min (>60); GLUCOSE,RANDOM 84 mg/dL (70-110); HDL CHOLESTEROL 29 mg/dL (40-60); LDL CHOL (CALC.) 138 mg/dL (0-130); POTASSIUM 4.3 mmol/L (3.5-5.1); SODIUM SERUM 140 mmol/L (136-145); THYROID STIMULATING HORMONE 1.36 uIU/mL (0.36-3.74); TOTAL PROTEIN, SERUM 6.9 g/dL (6.4-8.2); TRIGLYCERIDES 131 mg/dL (15-150); UREA NITROGEN, BLOOD 12 mg/dL (7-18)
[2018-11-07 12:13] VITALS: BP 108/61
[2018-11-07] MEDS ORDERED: DIVA250T45 PO (12:25)
[2018-11-07] MEDS ORDERED: LOPERAMIDE HCL 2 MG CAPSULE PO PRN (12:30)
[2018-11-07] MEDS ORDERED: DOCUSATE SODIUM 100 MG CAPSULE PO PRN (12:30)
[2018-11-07] MEDS ORDERED: NICOTINE 14 MG/24 HOUR PATCH TD PRN (12:30)
[2018-11-07] MEDS ORDERED: PALIPERIDONE PALMITATE 234 MG/1.5 ML SYRINGE IM SCH (12:30)
[2018-11-07] MEDS ORDERED: CloNIDine HCL 0.1 MG TABLET PO PRN (12:30)
[2018-11-07] MEDS ORDERED: ACETAMINOPHEN 325 MG TABLET PO PRN (12:30)
[2018-11-07] MEDS ORDERED: PETROLATUM,WHITE 28 GM JELLY TP PRN (12:30)
[2018-11-07] MEDS ORDERED: ALBUTEROL SULFATE HFA 90 MCG/PUFF 8 GM INHALER IH PRN (12:30)
[2018-11-07] MEDS ORDERED: ONDANSETRON HCL 4 MG TABLET PO PRN (12:30)
[2018-11-07] MEDS ORDERED: MAGNESIUM HYDROXIDE SUSPENSION 30 ML UDCUP PO PRN (12:30)
[2018-11-07] MEDS ORDERED: GuaiFENesin/D-METHORPHAN [SUGAR-FREE] 200-20MG/10 ML SYRUP UDCUP PO PRN (12:30)
[2018-11-07] MEDS ORDERED: IBUPROFEN 400 MG TABLET PO PRN (12:30)
[2018-11-07] MEDS ORDERED: MAG HYDROX/AL HYDROX/SIMETH ES 30 ML SUSPENSION UDCUP PO PRN (12:30)
[2018-11-07] MEDS: DIVALPROEX SODIUM 500 MG DR TABLET PO SCH (17:04)
[2018-11-07 19:45] VITALS: BP 139/95
[2018-11-07] MEDS: SIMVASTATIN 10 MG TABLET PO SCH (20:34)
[2018-11-07] MEDS: ZOLPIDEM TARTRATE 10 MG TABLET PO PRN (20:34)
[2018-11-08] MEDS: DIVALPROEX SODIUM 500 MG DR TABLET PO SCH ×2 (09:23→16:40)
[2018-11-08] MEDS: OMEPRAZOLE 20 MG CAPSULE PO SCH (09:23)
[2018-11-08] MEDS: FOLIC ACID 1 MG TABLET PO SCH (09:24)
[2018-11-08 12:16] VITALS: BP 116/64
[2018-11-08 18:53] LABS: AMPHET/METH SCREEN,URINE NEGATIVE (NEGATIVE); BARBITURATE SCREEN, URINE NEGATIVE (NEGATIVE); BENZODIAZEPINES SCREEN,URINE NEGATIVE (NEGATIVE); CANNABINOID SCREEN,URINE NEGATIVE (NEGATIVE); COCAINE SCREEN,URINE NEGATIVE (NEGATIVE); METHADONE SCREEN, URINE NEGATIVE (NEGATIVE); OPIATE SCREEN,URINE NEGATIVE (NEGATIVE)
[2018-11-08 19:00] LABS: PHENCYCLIDINE SCREEN,URINE NEGATIVE (NEGATIVE)
[2018-11-08 19:10] LABS: APPEARANCE,URINE CLEAR (CLEAR); BILIRUBIN,URINE NEGATIVE (NEGATIVE); GLUCOSE, URINE (UA) NEGATIVE (NEGATIVE); KETONES,URINE NEGATIVE (NEGATIVE); LEUKOCYTE ESTERASE ,URINE NEGATIVE (NEGATIVE); NITRATE,URINE NEGATIVE (NEGATIVE); OCCULT BLOOD,URINE NEGATIVE (NEGATIVE); PH,URINE 6.5 (5.0-8.0); PROTEIN,URINE NEGATIVE (NEGATIVE); UROBILINOGEN,URINE 0.2 mg/dL (<=1.0)
[2018-11-08 19:37] VITALS: BP 135/75
[2018-11-08] MEDS: ZOLPIDEM TARTRATE 10 MG TABLET PO PRN (20:26)
[2018-11-08] MEDS: SIMVASTATIN 10 MG TABLET PO SCH (20:27)
[2018-11-09] MEDS: DIVALPROEX SODIUM 500 MG DR TABLET PO SCH ×2 (09:27→17:33)
[2018-11-09] MEDS: OMEPRAZOLE 20 MG CAPSULE PO SCH (09:27)
[2018-11-09] MEDS: FOLIC ACID 1 MG TABLET PO SCH (09:27)
[2018-11-09 09:48] VITALS: BP 128/64
[2018-11-09 16:53] VITALS: BP 136/96
[2018-11-09] MEDS: SIMVASTATIN 10 MG TABLET PO SCH (21:12)
[2018-11-10] MEDS: FOLIC ACID 1 MG TABLET PO SCH (09:52)
[2018-11-10] MEDS: OMEPRAZOLE 20 MG CAPSULE PO SCH (09:52)
[2018-11-10] MEDS: DIVALPROEX SODIUM 500 MG DR TABLET PO SCH ×2 (09:52→16:24)
[2018-11-10 10:33] VITALS: BP 124/66
[2018-11-10 16:55] VITALS: BP 130/70
[2018-11-10] MEDS: SIMVASTATIN 10 MG TABLET PO SCH (20:23)
[2018-11-11 08:57] VITALS: BP 129/84
[2018-11-11] MEDS: DIVALPROEX SODIUM 500 MG DR TABLET PO SCH ×2 (09:27→16:03)
[2018-11-11] MEDS: OMEPRAZOLE 20 MG CAPSULE PO SCH (09:27)
[2018-11-11] MEDS: FOLIC ACID 1 MG TABLET PO SCH (09:28)
[2018-11-11 17:05] VITALS: BP 118/86
[2018-11-11] MEDS: SIMVASTATIN 10 MG TABLET PO SCH (20:26)
[2018-11-12 00:40] VITALS: BP 151/97
[2018-11-12] MEDS: ZOLPIDEM TARTRATE 10 MG TABLET PO PRN ×2 (00:45→20:12)
[2018-11-12 09:12] LABS: % IRON SATURATION 24.4 % (30-44)
[2018-11-12] MEDS: FOLIC ACID 1 MG TABLET PO SCH (09:22)
[2018-11-12] MEDS: OMEPRAZOLE 20 MG CAPSULE PO SCH (09:22)
[2018-11-12] MEDS: DIVALPROEX SODIUM 500 MG DR TABLET PO SCH ×2 (09:22→16:08)
[2018-11-12] MEDS: HALOPERIDOL 5 MG TABLET PO PRN (16:08)
[2018-11-12 16:30] VITALS: BP 134/78
[2018-11-12] MEDS: SIMVASTATIN 10 MG TABLET PO SCH (20:12)
[2018-11-13] MEDS: FOLIC ACID 1 MG TABLET PO SCH (08:48)
[2018-11-13] MEDS: DIVALPROEX SODIUM 500 MG DR TABLET PO SCH ×2 (08:48→16:59)
[2018-11-13] MEDS: OMEPRAZOLE 20 MG CAPSULE PO SCH (08:48)
[2018-11-13 09:01] VITALS: BP 124/68
[2018-11-13] MEDS: HALOPERIDOL 5 MG TABLET PO PRN (16:59)
[2018-11-13 19:32] VITALS: BP 115/85
[2018-11-13] MEDS: SIMVASTATIN 10 MG TABLET PO SCH (20:08)
[2018-11-13] MEDS: ZOLPIDEM TARTRATE 10 MG TABLET PO PRN (20:08)
[2018-11-14 06:18] VITALS: BP 127/66
[2018-11-14 08:00] VITALS: BP 147/94
[2018-11-14] MEDS: DIVALPROEX SODIUM 500 MG DR TABLET PO SCH ×2 (09:37→16:34)
[2018-11-14] MEDS: OMEPRAZOLE 20 MG CAPSULE PO SCH (09:37)
[2018-11-14] MEDS: FOLIC ACID 1 MG TABLET PO SCH (09:37)
[2018-11-14 18:16] VITALS: BP 130/81
[2018-11-14] MEDS: ZOLPIDEM TARTRATE 10 MG TABLET PO PRN (20:19)
[2018-11-14] MEDS: SIMVASTATIN 10 MG TABLET PO SCH (20:19)
[2018-11-15 08:00] VITALS: BP 114/77
[2018-11-15] MEDS: DIVALPROEX SODIUM 500 MG DR TABLET PO SCH ×2 (10:11→18:09)
[2018-11-15] MEDS: OMEPRAZOLE 20 MG CAPSULE PO SCH (10:11)
[2018-11-15] MEDS: FOLIC ACID 1 MG TABLET PO SCH (10:11)
[2018-11-15 16:00] VITALS: BP 137/68
[2018-11-15] MEDS: SIMVASTATIN 10 MG TABLET PO SCH (20:08)
[2018-11-15] MEDS: ZOLPIDEM TARTRATE 10 MG TABLET PO PRN (20:36)
[2018-11-15] MEDS ORDERED: DIVA-78 PO (21:59)
== END 2018-11-16 00:20 | disposition home or self-care (01) | DRG 750 ==
LOC: EMS 15:46 → 3EI 21:00
PROVIDERS: ADMIT Psychiatry & Neurology Psychiatry; ATTEND Psychiatry & Neurology Psychiatry
DX: F20.0 Paranoid schizophrenia (principal); R45.851 Suicidal ideations; D64.9 Anemia, unspecified; E78.5 Hyperlipidemia, unspecified; F15.10 Other stimulant abuse, uncomplicated; F14.10 Cocaine abuse, uncomplicated; F17.210 Nicotine dependence, cigarettes, uncomplicated; I10 Essential (primary) hypertension; J44.9 Chronic obstructive pulmonary disease, unspecified; F32.9 Major depressive disorder, single episode, unspecified; F41.9 Anxiety disorder, unspecified; R25.1 Tremor, unspecified; Z79.899 Other long term (current) drug therapy; Z71.6 Tobacco abuse counseling; Z71.51 Drug abuse counseling and surveillance of drug abuser
CPT/HCPCS: 82728; 83036; 83540; 83550; 84443; G0480; J3535

== ENCOUNTER 2018-11-16 02:44 | Emergency (ER) | payer MEDICAID, OTHER ==
[~2018-11-16] VITALS: Ht 170.2 cm; Wt 109.1 kg
[~2018-11-16 02:44] MED LIST changes: +DIVA-78 PO; +DIVA250T45 PO
[2018-11-16 05:09] VITALS: BP 138/88
== END 2018-11-16 05:12 | disposition home or self-care (01) ==
LOC: EMS 02:46
DX: Z02.83 Encounter for blood-alcohol and blood-drug test (principal); F25.9 Schizoaffective disorder, unspecified; I10 Essential (primary) hypertension; J45.909 Unspecified asthma, uncomplicated; F32.9 Major depressive disorder, single episode, unspecified; F15.90 Other stimulant use, unspecified, uncomplicated; F14.90 Cocaine use, unspecified, uncomplicated; F17.210 Nicotine dependence, cigarettes, uncomplicated

== ENCOUNTER 2019-06-01 12:37 | Emergency (ER) | payer OTHER ==
[~2019-06-01] VITALS: Ht 170.2 cm; Wt 100.0 kg
[~2019-06-01 12:37] MED LIST changes: -BENZ2TAB10 PO; -BUPR100SR PO; -DIVA250T45 PO; -DIVA500T52 PO; -FOLI1 PO; -NALT50TA6 PO; -NICO-704 TD; -OMEP20 PO; -PALI3 PO; -THIA100T67 PO
[2019-06-01 12:43] VITALS: BP 141/81
== END 2019-06-01 13:55 | disposition home or self-care (01) ==
LOC: EMS 12:40
DX: K08.89 Other specified disorders of teeth and supporting structures (principal); J45.909 Unspecified asthma, uncomplicated; F32.9 Major depressive disorder, single episode, unspecified; I10 Essential (primary) hypertension; F20.9 Schizophrenia, unspecified; F17.210 Nicotine dependence, cigarettes, uncomplicated; F14.90 Cocaine use, unspecified, uncomplicated; F19.90 Other psychoactive substance use, unspecified, uncomplicated

== ENCOUNTER 2021-11-04 16:02 | Inpatient (IN) | payer MEDICAID, OTHER ==
[~2021-11-04] VITALS: Ht 177.8 cm; Wt 121.1 kg
[~2021-11-04 16:02] MED LIST changes: +DIVA-112 PO; -DIVA-78 PO
[2021-11-04 17:38] LABS: BASOPHILS % (AUTO) 0.3 % (0.0-2.0); EOSINOPHILS % (AUTO) 3.7 % (1.0-6.0); HEMATOCRIT 40.5 % (41-53); HEMOGLOBIN 13.6 g/dL (13.5-17.5); LYMPHOCYTES # (AUTO) 2.8 K/uL (1.0-4.8); LYMPHOCYTES % (AUTO) 30.6 % (22.0-44.0); MEAN CORPUSCULAR HEMOGLOBIN 29.5 pg (26.0-34.0); MEAN CORPUSCULAR HGB CONC 33.6 G/dL (31.0-37.0); MEAN CORPUSCULAR VOLUME 88 fL (80-100); MONOCYTES # (AUTO) 0.9 K/uL (0.1-1.0); MONOCYTES % (AUTO) 9.5 % (2.0-9.0); NEUTROPHILS # (AUTO) 5.1 K/uL (1.8-7.7); NEUTROPHILS % (AUTO) 55.9 % (40.0-70.0); PLATELET COUNT (AUTO) 193 K/uL (150-450); RED CELL DISTRIBUTION WIDTH 14.6 % (11.5-14.5)
[2021-11-04] MEDS ORDERED: ACETAMINOPHEN 500 MG TABLET PO ONE (17:45)
[2021-11-04] MEDS ORDERED: LISINOPRIL 10 MG TABLET PO ONE (17:45)
[2021-11-04 18:04] LABS: ANION GAP 12 mmol/L (8-16); CALCIUM, TOTAL 9.5 mg/dL (8.8-10.5); CARBON DIOXIDE 27 mmol/L (22-29); CHLORIDE 102 mmol/L (98-107); CREATININE 0.85 mg/dL (0.60-1.30); GLUCOSE,RANDOM 96 mg/dL (70-110); POTASSIUM 3.9 mmol/L (3.5-5.1); SODIUM SERUM 141 mmol/L (136-145); UREA NITROGEN, BLOOD 9 mg/dL (7-18)
[2021-11-04 18:07] LABS: GLOMERULAR FILTR. RATE CALC > 60 mL/min (>60)
[2021-11-04 18:10] LABS: ALANINE AMINOTRANSFERASE 25 U/L (12-78); ALBUMIN 3.7 g/dL (3.4-5.0); ALKALINE PHOSPHATASE 49 U/L (46-116); ASPARTATE AMINOTRANSFERASE 17 U/L (15-37); BILIRUBIN,TOTAL 0.4 mg/dL (0.1-1.0)
[2021-11-04 18:16] LABS: COVID AG,FIA SOURCE NASOPHARYNGEAL
[2021-11-04] MEDS ORDERED: HALOPERIDOL 5 MG TABLET PO ONE (18:45)
[2021-11-04] MEDS ORDERED: LORazepam 1 MG TABLET PO ONE (18:45)
[2021-11-04 19:27] LABS: AMPHET/METH SCREEN,URINE NEGATIVE (NEGATIVE); BARBITURATE SCREEN, URINE NEGATIVE (NEGATIVE); BENZODIAZEPINES SCREEN,URINE NEGATIVE (NEGATIVE); CANNABINOID SCREEN,URINE NEGATIVE (NEGATIVE); COCAINE SCREEN,URINE NEGATIVE (NEGATIVE); METHADONE SCREEN, URINE NEGATIVE (NEGATIVE); OPIATE SCREEN,URINE NEGATIVE (NEGATIVE)
[2021-11-04 19:28] LABS: PHENCYCLIDINE SCREEN,URINE NEGATIVE (NEGATIVE)
[2021-11-04] MEDS ORDERED: HALOPERIDOL 5 MG TABLET PO PRN (22:45)
[2021-11-04] MEDS ORDERED: ZOLPIDEM TARTRATE 10 MG TABLET PO PRN (22:45)
[2021-11-05 01:41] VITALS: BP 151/82
[2021-11-05] MEDS ORDERED: ONDANSETRON HCL 4 MG TABLET PO PRN (06:00)
[2021-11-05] MEDS ORDERED: DOCUSATE SODIUM 100 MG CAPSULE PO PRN (06:00)
[2021-11-05] MEDS ORDERED: MAGNESIUM HYDROXIDE SUSPENSION 30 ML UDCUP PO PRN (06:00)
[2021-11-05] MEDS ORDERED: IBUPROFEN 400 MG TABLET PO PRN (06:00)
[2021-11-05] MEDS ORDERED: ALBUTEROL SULFATE HFA 90 MCG/PUFF 8 GM INHALER IH PRN (06:00)
[2021-11-05] MEDS ORDERED: PETROLATUM,WHITE 28 GM JELLY TP PRN (06:00)
[2021-11-05] MEDS ORDERED: ACETAMINOPHEN 325 MG TABLET PO PRN (06:00)
[2021-11-05] MEDS ORDERED: MAG HYDROX/AL HYDROX/SIMETH ES 30 ML SUSPENSION UDCUP PO PRN (06:00)
[2021-11-05] MEDS ORDERED: LOPERAMIDE HCL 2 MG CAPSULE PO PRN (06:00)
[2021-11-05] MEDS ORDERED: CloNIDine HCL 0.1 MG TABLET PO PRN (06:00)
[2021-11-05 08:06] VITALS: BP 131/78
[2021-11-05] MEDS: LORazepam 2 MG TABLET PO PRN (09:52)
[2021-11-05] MEDS ORDERED: DONE-51 PO (11:00)
[2021-11-05] MEDS: ARIPiprazole 10 MG TABLET PO SCH (12:32)
[2021-11-05] MEDS: DIVALPROEX SODIUM 500 MG DR TABLET PO SCH ×2 (12:32→20:12)
[2021-11-05 20:10] VITALS: BP 143/78
[2021-11-05] MEDS: TraZODone HCL 50 MG TABLET PO SCH (20:12)
[2021-11-05] MEDS: SIMVASTATIN 10 MG TABLET PO SCH (20:12)
[2021-11-05] MEDS: DONEPEZIL HCL 10 MG TABLET PO SCH (20:12)
[2021-11-06 08:18] VITALS: BP 130/83
[2021-11-06] MEDS: ARIPiprazole 10 MG TABLET PO SCH (09:11)
[2021-11-06] MEDS: DIVALPROEX SODIUM 500 MG DR TABLET PO SCH ×2 (09:11→20:29)
[2021-11-06] MEDS: LORazepam 2 MG TABLET PO PRN (12:33)
[2021-11-06] MEDS: NICOTINE 14 MG/24 HOUR PATCH TD PRN (13:32)
[2021-11-06] MEDS: SIMVASTATIN 10 MG TABLET PO SCH (20:29)
[2021-11-06] MEDS: TraZODone HCL 50 MG TABLET PO SCH (20:29)
[2021-11-06] MEDS: DONEPEZIL HCL 10 MG TABLET PO SCH (20:29)
[2021-11-06 20:40] VITALS: BP 120/76
[2021-11-07 08:25] VITALS: BP 121/84
[2021-11-07] MEDS: DIVALPROEX SODIUM 500 MG DR TABLET PO SCH ×2 (08:46→20:52)
[2021-11-07] MEDS: ARIPiprazole 10 MG TABLET PO SCH (08:46)
[2021-11-07 20:21] VITALS: BP 140/89
[2021-11-07] MEDS: TraZODone HCL 50 MG TABLET PO SCH (20:52)
[2021-11-07] MEDS: DONEPEZIL HCL 10 MG TABLET PO SCH (20:52)
[2021-11-07] MEDS: SIMVASTATIN 10 MG TABLET PO SCH (20:52)
[2021-11-08 08:06] VITALS: BP 151/99
[2021-11-08] MEDS: ARIPiprazole 10 MG TABLET PO SCH (08:37)
[2021-11-08] MEDS: DIVALPROEX SODIUM 500 MG DR TABLET PO SCH ×2 (08:37→20:28)
[2021-11-08] MEDS ORDERED: OMEP20CA12 PO (13:03)
[2021-11-08] MEDS ORDERED: LISI20TA24 PO (13:03)
[2021-11-08] MEDS ORDERED: CHOL500013 PO (13:03)
[2021-11-08 20:15] VITALS: BP 127/81
[2021-11-08] MEDS: SIMVASTATIN 10 MG TABLET PO SCH (20:28)
[2021-11-08] MEDS: DONEPEZIL HCL 10 MG TABLET PO SCH (20:28)
[2021-11-08] MEDS: TraZODone HCL 50 MG TABLET PO SCH (20:28)
[2021-11-09 08:06] VITALS: BP 144/91
[2021-11-09] MEDS: ARIPiprazole 10 MG TABLET PO SCH (09:07)
[2021-11-09] MEDS: DIVALPROEX SODIUM 500 MG DR TABLET PO SCH ×2 (09:07→20:07)
[2021-11-09] MEDS: TraZODone HCL 50 MG TABLET PO SCH (20:07)
[2021-11-09] MEDS: DONEPEZIL HCL 10 MG TABLET PO SCH (20:07)
[2021-11-09] MEDS: SIMVASTATIN 10 MG TABLET PO SCH (20:07)
[2021-11-09 20:28] VITALS: BP 134/83
[2021-11-10] MEDS: GuaiFENesin/D-METHORPHAN [SUGAR-FREE] 200-20MG/10 ML SYRUP UDCUP PO PRN (06:42)
[2021-11-10] MEDS: DIVALPROEX SODIUM 500 MG DR TABLET PO SCH ×2 (08:06→20:01)
[2021-11-10] MEDS: ARIPiprazole 10 MG TABLET PO SCH (08:06)
[2021-11-10 08:14] VITALS: BP 158/102
[2021-11-10 15:51] LABS: GLUCOMETER DEV NAME(LOC) POC.BV
[2021-11-10] MEDS: DONEPEZIL HCL 10 MG TABLET PO SCH (20:01)
[2021-11-10] MEDS: SIMVASTATIN 10 MG TABLET PO SCH (20:01)
[2021-11-10] MEDS: TraZODone HCL 50 MG TABLET PO SCH (20:01)
[2021-11-10 20:41] VITALS: BP 112/63
[2021-11-11 08:18] VITALS: BP 147/78
[2021-11-11] MEDS: ARIPiprazole 10 MG TABLET PO SCH (08:34)
[2021-11-11] MEDS: DIVALPROEX SODIUM 500 MG DR TABLET PO SCH ×2 (08:34→20:02)
[2021-11-11 16:09] VITALS: BP 150/86
[2021-11-11] MEDS: LORazepam 2 MG TABLET PO PRN (16:09)
[2021-11-11] MEDS: SIMVASTATIN 10 MG TABLET PO SCH (20:02)
[2021-11-11] MEDS: DONEPEZIL HCL 10 MG TABLET PO SCH (20:02)
[2021-11-11] MEDS: TraZODone HCL 50 MG TABLET PO SCH (20:02)
[2021-11-11 20:52] VITALS: BP 146/84
[2021-11-11] MEDS: GuaiFENesin/D-METHORPHAN [SUGAR-FREE] 200-20MG/10 ML SYRUP UDCUP PO PRN (21:34)
[2021-11-12 07:19] LABS: HEMOGLOBIN A1C 5.4 % (3.8-5.6)
[2021-11-12 07:23] LABS: CHOL/HDL RATIO 4.1 (4.2-7.3)
[2021-11-12] MEDS: ARIPiprazole 10 MG TABLET PO SCH (08:15)
[2021-11-12] MEDS: DIVALPROEX SODIUM 500 MG DR TABLET PO SCH ×2 (08:15→20:38)
[2021-11-12 08:18] VITALS: BP 140/88
[2021-11-12] MEDS: NICOTINE 14 MG/24 HOUR PATCH TD PRN (12:49)
[2021-11-12] MEDS: LORazepam 2 MG TABLET PO PRN (17:22)
[2021-11-12 20:25] VITALS: BP 143/84
[2021-11-12] MEDS: SIMVASTATIN 10 MG TABLET PO SCH (20:38)
[2021-11-12] MEDS: DONEPEZIL HCL 10 MG TABLET PO SCH (20:38)
[2021-11-12] MEDS: TraZODone HCL 50 MG TABLET PO SCH (20:38)
[2021-11-13 09:17] VITALS: BP 141/96
[2021-11-13] MEDS: ARIPiprazole 10 MG TABLET PO SCH (09:30)
[2021-11-13] MEDS: DIVALPROEX SODIUM 500 MG DR TABLET PO SCH ×2 (09:30→20:28)
[2021-11-13] MEDS: LORazepam 2 MG TABLET PO PRN (18:15)
[2021-11-13] MEDS: NICOTINE 14 MG/24 HOUR PATCH TD PRN (18:15)
[2021-11-13 20:06] VITALS: BP 137/81
[2021-11-13] MEDS: TraZODone HCL 50 MG TABLET PO SCH (20:28)
[2021-11-13] MEDS: DONEPEZIL HCL 10 MG TABLET PO SCH (20:28)
[2021-11-13] MEDS: SIMVASTATIN 10 MG TABLET PO SCH (20:28)
[2021-11-14 08:25] VITALS: BP 141/95
[2021-11-14] MEDS: DIVALPROEX SODIUM 500 MG DR TABLET PO SCH ×2 (08:47→20:29)
[2021-11-14] MEDS: ARIPiprazole 10 MG TABLET PO SCH (08:47)
[2021-11-14] MEDS: SIMVASTATIN 10 MG TABLET PO SCH (20:29)
[2021-11-14] MEDS: TraZODone HCL 50 MG TABLET PO SCH (20:29)
[2021-11-14] MEDS: DONEPEZIL HCL 10 MG TABLET PO SCH (20:29)
[2021-11-14 20:30] VITALS: BP 147/84
[2021-11-15 08:45] VITALS: BP 140/90
[2021-11-15] MEDS: ARIPiprazole 10 MG TABLET PO SCH (08:47)
[2021-11-15] MEDS: DIVALPROEX SODIUM 500 MG DR TABLET PO SCH ×2 (08:47→20:16)
[2021-11-15] MEDS: NICOTINE 14 MG/24 HOUR PATCH TD PRN (09:41)
[2021-11-15] MEDS: TraZODone HCL 50 MG TABLET PO SCH (20:15)
[2021-11-15] MEDS: DONEPEZIL HCL 10 MG TABLET PO SCH (20:16)
[2021-11-15] MEDS: SIMVASTATIN 10 MG TABLET PO SCH (20:16)
[2021-11-15 20:52] VITALS: BP 131/86
[2021-11-16] MEDS: ARIPiprazole 10 MG TABLET PO SCH (07:56)
[2021-11-16] MEDS: DIVALPROEX SODIUM 500 MG DR TABLET PO SCH ×2 (07:56→20:30)
[2021-11-16 08:08] VITALS: BP 111/61
[2021-11-16] MEDS: NICOTINE 14 MG/24 HOUR PATCH TD PRN (12:01)
[2021-11-16 20:02] VITALS: BP 154/86
[2021-11-16] MEDS: SIMVASTATIN 10 MG TABLET PO SCH (20:30)
[2021-11-16] MEDS: TraZODone HCL 50 MG TABLET PO SCH (20:30)
[2021-11-16] MEDS: DONEPEZIL HCL 10 MG TABLET PO SCH (20:30)
[2021-11-17 08:05] VITALS: BP 130/88
[2021-11-17] MEDS: ARIPiprazole 10 MG TABLET PO SCH (08:38)
[2021-11-17] MEDS: DIVALPROEX SODIUM 500 MG DR TABLET PO SCH (08:38)
[2021-11-17 10:06] LABS: GLUCOMETER DEV NAME(LOC) POC.BV
[2021-11-17] MEDS ORDERED: SIMV-259 PO (15:33)
[2021-11-17] MEDS ORDERED: TRAZ-252 PO (15:33)
[2021-11-17] MEDS ORDERED: DIVA-112 PO (15:33)
[2021-11-17] MEDS ORDERED: DONE-51 PO (15:33)
== END 2021-11-17 16:50 | disposition home or self-care (01) | DRG 750 ==
LOC: EMS 16:06 → B2S 11-05 00:21
PROVIDERS: ADMIT Psychiatry & Neurology Psychiatry; ATTEND Psychiatry & Neurology Psychiatry
DX: F25.1 Schizoaffective disorder, depressive type (principal); R45.851 Suicidal ideations; I10 Essential (primary) hypertension; J44.9 Chronic obstructive pulmonary disease, unspecified; H54.61 Unqualified visual loss, right eye, normal vision left eye; F10.10 Alcohol abuse, uncomplicated; E78.5 Hyperlipidemia, unspecified; F17.210 Nicotine dependence, cigarettes, uncomplicated; F19.10 Other psychoactive substance abuse, uncomplicated; G47.00 Insomnia, unspecified; F32.A Depression, unspecified; Z20.822 Contact with and (suspected) exposure to COVID-19; Z59.00 Homelessness unspecified; Z79.899 Other long term (current) drug therapy; Z71.51 Drug abuse counseling and surveillance of drug abuser
CPT/HCPCS: 71045; 80053; 80061; 80164; 83036; 85025; 93005; 99285; G0480; 36415-L1; 36415-TC